=== PATIENT | female | born 1995 | race Two or more races ===

== ENCOUNTER 2024-03-02 15:28 | Emergency (ER) | payer OTHER ==
[~2024-03-02] VITALS: Ht 160 cm; Wt 73.5 kg
[2024-03-02] MEDS ORDERED: ACETAMINOPHEN 500 MG GEL..CAP PO ONE ×2 (17:45→18:01)
[2024-03-02 19:05] LABS: HEMATOCRIT 39.8 % (36.0-45.00); HEMOGLOBIN 13.7 g/dL (12.0-15.00); MEAN CELL VOLUME 89.3 fL (80.00-100.00); MEAN CORPUSCULAR HEMOGLOBIN 30.8 pg (27.00-32.0); MEAN CORPUSCULAR HGB CONC 34.5 g/dl (32.0-36.0); PLATELET COUNT 298 K/uL (150-450); RED BLOOD COUNT 4.46 M/uL (4.00-6.00); RED CELL DISTRIBUTION WIDTH 13.4 % (11.5-14.5)
[2024-03-02 19:15] LABS: URINE APPEARANCE Turbid; URINE BILIRRUBIN Negative (NEGATIVE); URINE BLOOD Large; URINE COLOR Yellow; URINE GLUCOSE Negative (NEGATIVE); URINE KETONE Negative (NEGATIVE); URINE LEUKOCYTE Large; URINE NITRATE Positive
[2024-03-02 19:18] LABS: URINE BACTERIA 1550.7 uL (0.0-1933); URINE EPITHELIAL CELLS 16.1 uL (0.0-38.8)
[2024-03-02 19:25] LABS: URINE CAST 0.14 uL (0.0-1.40); URINE PROTEIN 100 (NEGATIVE); URINE WBC > 5548.3 uL (0.0-23.2)
[2024-03-02 19:28] LABS: CREATININE SERUM 1.04 mg/dL (0.55-1.02); GFR 62.65; POTASSIUM 4.13 mEq/L (3.5-5.1)
[2024-03-02] MEDS ORDERED: PYRIDIUM100 MG PO (19:39)
[2024-03-02] MEDS ORDERED: BACTRIM DS TAB1 EACH PO (19:39)
== END 2024-03-02 20:07 ==
LOC: ER 15:31
PROVIDERS: General Practice
DX: N39.0 Urinary tract infection, site not specified (principal); R10.2 Pelvic and perineal pain; R30.0 Dysuria; Z88.6 Allergy status to analgesic agent